=== PATIENT | female | born 1985 | race Two or more races ===

== ENCOUNTER 2016-12-09 07:30 | Outpatient (CLI) | payer BC ==
[~2016-12-09 07:30] MED LIST: ACET325T14 PO; DOCU-30 PO; IBUP-1222 PO; OXYC-302 PO; PNV1TABL11 PO; PREN1TAB10 PO
[2016-12-10] MEDS ORDERED: KETOROLAC 30 MG/1 ML ONE (02:47)
[2016-12-10] MEDS ORDERED: OXYcodone/APAP 10/325MG TABLET ONE (04:45)
== END 2016-12-09 13:00 | disposition home or self-care (01) ==
LOC: LDOP 07:30 → LDIP 16:28 → UNDOADMIN 16:28
PROVIDERS: ATTEND Specialist
DX: O32.1XX0 Maternal care for breech presentation, not applicable or unspecified (principal); Z3A.37 37 weeks gestation of pregnancy
CPT/HCPCS: 59025; 99211; G0463

== ENCOUNTER 2016-12-09 16:28 | Inpatient (IN) | payer BC ==
[~2016-12-09 16:28] MED LIST changes: +CITRIC ACID/SODIUM CITRATE ORAL SOL PO ONE; +LACTATED RINGERS 1,000 ML IV SCH; +MEASLES,MUMPS&RUBELLA VACC/PF 0.5 ML SQ-VACC ONE; +METOCLOPRAMIDE 5 MG/ML, 2ML IVPush ONE; +NEWBORN KIT ONE
[2016-12-09] MEDS ORDERED: METOCLOPRAMIDE 5 MG/ML, 2ML ONE (17:53)
[2016-12-09] MEDS ORDERED: SODIUM CITRATE/CITRIC ACID 30 ML UDC ONE (17:53)
[2016-12-09] MEDS ORDERED: morphine SULFATE/PF 0.5 MG/ML, 10ML ONE (18:40)
[2016-12-09] MEDS: KETOROLAC 30 MG/1 ML IVPush SCH (19:00)
[2016-12-09] MEDS ORDERED: ONDANSETRON 2MG/ML, 2ML IV PRN ×2 (20:00→22:30)
[2016-12-09] MEDS ORDERED: FENTANYL PF 100 MCG/2ML IVPush PRN (20:00)
[2016-12-09] MEDS ORDERED: OXYcodone 5 MG/5 ML ORAL.SOL UDC PO PRN (20:00)
[2016-12-09] MEDS ORDERED: HYDROmorphone 2 MG/ML, 1ML IV PRN (20:00)
[2016-12-09] MEDS ORDERED: KETOROLAC 30 MG/1 ML ONE (20:52)
[2016-12-09] MEDS ORDERED: OXYTOCIN 30U/ 0.9% NaCL 500ML 500 ML ONE (20:53)
[2016-12-09] MEDS ORDERED: NO SEDATIVES, TRANQUILIZERS OR ANTIEMETICS XX SCH (21:00)
[2016-12-09] MEDS ORDERED: DIPHENHYDRAMINE 50 MG/ML, 1ML IV PRN (21:00)
[2016-12-09] MEDS: LACTATED RINGERS 1,000 ML IV SCH ×3 (21:00→22:30)
[2016-12-09] MEDS ORDERED: OXYcodone/APAP 5/325MG TABLET PO PRN ×2 (21:00→22:30)
[2016-12-09] MEDS: OXYTOCIN 30U/ 0.9% NaCL 500ML 500 ML IV SCH ×2 (21:00→22:30)
[2016-12-09] MEDS ORDERED: HYDROmorphone 1 MG/ML, 1ML IVPush PRN (21:00)
[2016-12-09] MEDS ORDERED: ONDANSETRON 2MG/ML, 2ML IVPush PRN (21:00)
[2016-12-09] MEDS ORDERED: NALOXONE 0.4 MG/ML, 1ML IV PRN (21:00)
[2016-12-09] MEDS: KETOROLAC 30 MG/1 ML IV SCH ×2 (21:05→22:30)
[2016-12-09] MEDS ORDERED: OXYcodone/APAP 10/325MG TABLET ONE (21:30)
[2016-12-09] MEDS: OXYcodone/APAP 10/325MG TABLET PO PRN (21:35)
[2016-12-09] MEDS ORDERED: MISOPROSTOL 200 MCG TABLET PR PRN (22:30)
[2016-12-09] MEDS ORDERED: HYDROcodone/APAP 5/325 TABLET PO PRN ×2 (22:30)
[2016-12-09] MEDS ORDERED: MEPERIDINE/PF 50 MG/ML IM PRN (22:30)
[2016-12-09] MEDS ORDERED: DIPH,PERTUSS(ACELL),TET VAC/PF 0.5 ML IM-VACC ONE (22:30)
[2016-12-09] MEDS ORDERED: MEPERIDINE/PF 100 MG/ML IM PRN ×2 (22:30)
[2016-12-09] MEDS ORDERED: SIMETHICONE 80 MG CHEW TAB PO PRN (22:30)
[2016-12-10] MEDS ORDERED: OXYcodone/APAP 10/325MG TABLET ONE ×2 (00:22→09:43)
[2016-12-10] MEDS: OXYcodone/APAP 10/325MG TABLET PO PRN ×3 (00:35→09:54)
[2016-12-10] MEDS: KETOROLAC 30 MG/1 ML IVPush SCH ×3 (01:00→16:20)
[2016-12-10] MEDS: KETOROLAC 30 MG/1 ML IV SCH ×6 (03:00→22:06)
[2016-12-10] MEDS: LACTATED RINGERS 1,000 ML IV SCH ×5 (06:30→22:30)
[2016-12-10] MEDS ORDERED: DOCUSATE 100 MG CAPSULE ONE (08:22)
[2016-12-10] MEDS ORDERED: PRENATAL VIT/IRON/FA 1 EACH TABLET ONE (08:22)
[2016-12-10] MEDS: OXYTOCIN 30U/ 0.9% NaCL 500ML 500 ML IV SCH ×2 (08:30→18:30)
[2016-12-10] MEDS: DOCUSATE 100 MG CAPSULE PO PRN ×2 (08:48→22:06)
[2016-12-10] MEDS: PRENATAL VIT/IRON/FA 1 EACH TABLET PO SCH (09:00)
[2016-12-10] MEDS: SODIUM CHLORIDE FLUSH 10ML SYR IVF SCH ×2 (09:00→21:00)
[2016-12-10] MEDS ORDERED: KETOROLAC 30 MG/1 ML ONE (09:43)
[2016-12-10 16:15] VITALS: BP 105/66
[2016-12-10 19:27] VITALS: BP 102/59
[2016-12-11] MEDS ORDERED: SODIUM CITRATE/CITRIC ACID 30 ML UDC PO ONE (03:30)
[2016-12-11] MEDS ORDERED: METOCLOPRAMIDE 5 MG/ML, 2ML IVPush ONE (03:30)
[2016-12-11] MEDS: OXYcodone/APAP 5/325MG TABLET PO PRN ×5 (03:53→22:26)
[2016-12-11] MEDS: KETOROLAC 30 MG/1 ML IV SCH ×3 (03:53→19:21)
[2016-12-11] MEDS: LACTATED RINGERS 1,000 ML IV SCH ×2 (04:30→14:30)
[2016-12-11] MEDS: OXYTOCIN 30U/ 0.9% NaCL 500ML 500 ML IV SCH ×2 (04:30→14:30)
[2016-12-11 07:40] VITALS: BP 96/80
[2016-12-11] MEDS: DOCUSATE 100 MG CAPSULE PO PRN ×2 (08:35→22:27)
[2016-12-11] MEDS: PRENATAL VIT/IRON/FA 1 EACH TABLET PO SCH (08:35)
[2016-12-11] MEDS: SODIUM CHLORIDE FLUSH 10ML SYR IVF SCH (09:00)
[2016-12-11 20:40] VITALS: BP 109/70
[2016-12-12] MEDS: OXYTOCIN 30U/ 0.9% NaCL 500ML 500 ML IV SCH ×2 (00:30→10:30)
[2016-12-12] MEDS: IBUPROFEN 200 MG TABLET PO PRN ×2 (01:35→11:45)
[2016-12-12] MEDS: OXYcodone/APAP 5/325MG TABLET PO PRN ×3 (03:52→13:31)
[2016-12-12 08:00] VITALS: BP 108/73
[2016-12-12] MEDS: PRENATAL VIT/IRON/FA 1 EACH TABLET PO SCH (09:48)
[2016-12-12] MEDS: DOCUSATE 100 MG CAPSULE PO PRN (09:48)
[2016-12-12 14:21] LABS: DIFF TOTAL CELLS COUNTED 100 CELL DIFF
[2016-12-12 14:22] LABS: VERIFY COUNTS? YES
== END 2016-12-12 13:50 | disposition home or self-care (01) | DRG 766 ==
LOC: LDIP 16:28 → 2NW 21:40
PROVIDERS: ADMIT Specialist; ATTEND Specialist
PROC: 10D00Z1 Extraction of Products of Conception, Low, Open Approach (ICD-10-PCS; principal; 2016-12-09)
DX: O34.211 Maternal care for low transverse scar from previous cesarean delivery (principal); Z37.0 Single live birth; O32.1XX0 Maternal care for breech presentation, not applicable or unspecified; O99.62 Diseases of the digestive system complicating childbirth; K59.00 Constipation, unspecified; Z82.49 Family history of ischemic heart disease and other diseases of the circulatory system; Z3A.37 37 weeks gestation of pregnancy
CPT/HCPCS: 36415; 85025; 86850; 86900; J1885; J2274; J2590; J2765; J7120